=== PATIENT | female | born 1985 | race Caucasian/White ===

== ENCOUNTER 2024-08-13 01:22 | Inpatient (IN) | payer BC, MEDICAID ==
[~2024-08-13] VITALS: Ht 180.3 cm; Wt 66.8 kg
[~2024-08-13 01:22] MED LIST: ALPR-624 PO; DULO-31 PO
[2024-08-13] MEDS ORDERED: loperamide 2mg capsule PO PRN (01:45)
[2024-08-13] MEDS ORDERED: acetaminophen 325mg tablet PO PRN ×2 (01:45)
[2024-08-13] MEDS ORDERED: magnesium hydroxide 30ml (MOM) UD suspension PO PRN (01:45)
[2024-08-13] MEDS ORDERED: mag hydrox/Alum hydrox/simeth 30ml oral suspension PO PRN (01:45)
[2024-08-13] MEDS ORDERED: diphenhydrAMINE 25mg capsule PO PRN (02:40)
[2024-08-13] MEDS ORDERED: chlorproMAZINE 25mg tablet PO PRN (02:40)
[2024-08-13] MEDS: hydrOXYzine 25 MG tablet PO PRN (03:05)
[2024-08-13] MEDS: traZODone 50mg tablet PO PRN (03:05)
[2024-08-13 07:30] VITALS: BP 106/70; PULSE 100; RESP 20; TEMP 97.2; O2SAT 99
== END 2024-08-13 08:26 | disposition left against medical advice (07) | DRG 881 ==
LOC: ADULT MH 01:22 → UNDOADMIN 01:43 → ADULT MH 02:57 → UNDOADMIN 02:57 → UNDODISIN 08:26
PROVIDERS: ADMIT Psychiatry & Neurology Psychiatry; ATTEND Psychiatry & Neurology Psychiatry
DX: F32.A Depression, unspecified (principal); Z53.21 Procedure and treatment not carried out due to patient leaving prior to being seen by health care provider; Z88.2 Allergy status to sulfonamides; Z88.1 Allergy status to other antibiotic agents
CPT/HCPCS: 87081; Q0177